=== PATIENT | female | born 1940 | race African-American/Black ===

== ENCOUNTER 2023-11-06 12:47 | Outpatient (RCR) | payer MEDICARE, MEDICAID, SELFPAY | END 2023-11-27 12:09 | disposition home or self-care (01) | LOC: HO.WCC 12:47 | PROVIDERS: PCP Internal Medicine; Visit Provider Physician Assistant | DX: Z09 Encounter for follow-up examination after completed treatment for conditions other than malignant neoplasm (principal); E11.65 Type 2 diabetes mellitus with hyperglycemia; E11.51 Type 2 diabetes mellitus with diabetic peripheral angiopathy without gangrene; I10 Essential (primary) hypertension; L84 Corns and callosities; R26.89 Other abnormalities of gait and mobility; Z79.4 Long term (current) use of insulin | CPT/HCPCS: 99213 ==